=== PATIENT | female | born 1990 | race Hispanic/Latino ===

== ENCOUNTER 2021-03-27 21:47 | Emergency (ER) | payer MEDICAID ==
[~2021-03-27] VITALS: Ht 139.7 cm; Wt 59.0 kg
[2021-03-27] MEDS ORDERED: ACETAMINOPHEN WITH CODEINE 1 TAB TAB PO ONE (23:30)
[2021-03-27] MEDS ORDERED: IBUPROFEN 800 MG TAB PO ONE (23:30)
[2021-03-27] MEDS ORDERED: 0.9%NACL 1000ML 1,000 ML IV ONE (23:30)
[2021-03-27 23:32] LABS: BASOPHILS % (AUTO) 0.3 % (0.0-5.0); EOSINOPHILS % (AUTO) 0.5 % (0.0-8.0); HEMATOCRIT 34.4 % (36-48); LYMPHOCYTES % (AUTO) 4.4 % (21.0-51.0); MEAN CORPUSCULAR HEMOGLOBIN 26.7 pg (27.0-33.0); MEAN CORPUSCULAR HGB CONC 31.1 g/dL (32.0-36.0); MEAN CORPUSCULAR VOLUME 85.8 fL (79-99); MONOCYTES % (AUTO) 9.8 % (3.0-13.0); NEUTROPHILS % (AUTO) 84.7 % (40.0-77.0); PLATELET COUNT (AUTO) 285 K/uL (130-400); RED BLOOD CELL COUNT(AUTO) 4.01 MIL/uL (4.00-5.50); RED CELL DISTRIBUTION WIDTH 13.9 % (11.0-15.5); WHITE BLOOD COUNT (AUTO) 6.6 K/uL (4.8-10.8)
[2021-03-27 23:43] LABS: CREATININE 0.7 mg/dL (0.5-1.5); POTASSIUM 3.6 mmol/L (3.5-5.1)
[2021-03-27 23:48] LABS: ALBUMIN 4.3 g/dL (3.5-5.0); BILIRUBIN,TOTAL 0.2 mg/dL (0.2-1.0); TOTAL PROTEIN, SERUM 8.4 g/dL (6.0-8.3)
[2021-03-28] MEDS ORDERED: AZITHROMYCIN 250 MG TABLET PO ONE (02:00)
[2021-03-28] MEDS ORDERED: MORPHINE 2 MG SYG IVP ONE (02:00)
[2021-03-28] MEDS ORDERED: OSELTAMIVIR PHOSPHATE 75 MG CAP PO SCH (02:00)
[2021-03-28] MEDS ORDERED: BENZ-39 PO (02:02)
[2021-03-28] MEDS ORDERED: IVER3TAB PO (02:02)
[2021-03-28] MEDS ORDERED: AZIT250T PO (02:02)
[2021-03-28] MEDS ORDERED: OSEL75 PO (02:02)
[2021-03-28 03:24] VITALS: BP 138/82
== END 2021-03-28 03:36 | disposition home or self-care (01) ==
LOC: EDH 21:47
DX: U07.1 COVID-19 (principal); J11.1 Influenza due to unidentified influenza virus with other respiratory manifestations; R03.0 Elevated blood-pressure reading, without diagnosis of hypertension; Z79.1 Long term (current) use of non-steroidal anti-inflammatories (NSAID)
CPT/HCPCS: 36415; 71045; 80053; 83605; 85025; 87040 ×2; 87635; 87804 ×2; 87880; 96361; 96374; 99284; C9803; J7030

== ENCOUNTER 2024-12-19 10:51 | Emergency (ER) | payer MEDICAID ==
[~2024-12-19] VITALS: Ht 139.7 cm; Wt 59.0 kg
[~2024-12-19 10:51] MED LIST: AZIT250T PO; BENZ-39 PO; IVER3TAB PO; OSEL75 PO
--- NOTE | 2024-12-19 11:12 | EKG ---
[facility] Test Date: 2024-12-19 Test Time: 11:05:51 Pat Name: EVENS GLORIA Department: ED Room: Gender: F [employer]: [id number] : 1990 Requested By: BRIDGET WELCH Order Number: [id number] Reading MD: Axel Armstrong Measurements Intervals [place] Rate: 94 P: 41 KS: 170 QRS: 42 QRSD: 83 T: 28 QT: 393 QTc: 491 Interpretive Statements Sinus rhythm No previous ECG available for comparison Electronically Signed On 12-21-2024 12:48:40 CDT by Axel Armstrong Please click the below link to view image of tracing.
[2024-12-19 11:17] LABS: IMMATURE GRANULOCYTE ABSOLUTE 0.04 K/uL (0-1); NUCLEATED RED BLOOD CELLS 0.0 % (0.0-0.19); PLATELET COUNT (AUTO) 504 K/uL (130-400); RED BLOOD CELL COUNT(AUTO) 4.05 MIL/uL (4.00-5.50); RED CELL DISTRIBUTION WIDTH 14.2 % (11.0-15.5); WHITE BLOOD COUNT (AUTO) 8.3 K/uL (4.8-10.8)
[2024-12-19 11:22] LABS: CREATININE 0.7 mg/dL (0.5-1.0); GLOMERULAR FILTR. RATE CALC 116.0 mL/min (>90); GLUCOSE,RANDOM 140.0 mg/dL (70-105); SODIUM SERUM 133.0 mmol/L (136-145); UREA NITROGEN, BLOOD 8.0 mg/dL (7-18)
--- NOTE | 2024-12-19 13:22 | HMCIMG ---
EXAM: CT Head Without IV contrast. CLINICAL HISTORY: hypertensive urgency TECHNIQUE: Axial computed tomography images of the head/brain without intravenous contrast. COMPARISON: None provided. FINDINGS: BRAIN: Effacement of sulcal spaces in the bilateral fqmfnqv-spxplsqq-zkziorut region. No evidence of acute hemorrhage. No mass lesion. No CT evidence for acute territorial infarct. No midline shift or extra-axial collections. VENTRICLES: No hydrocephalus. ORBITS: The orbits are unremarkable. SINUSES AND MASTOIDS: The paranasal sinuses and mastoid air cells are clear. BONES: No fracture. SOFT TISSUES: Unremarkable. IMPRESSION: 1. Effacement of sulcal spaces in the bilateral myczvkb-kfgvhraw-adjxrdax region, concerning for cerebral edema. 2. No acute intracranial hemorrhage, mass, or territorial infarct. /Johnson
--- NOTE | 2024-12-19 14:46 | ERN ---
General Chief Complaint: Headache Stated Complaint: HEADACHE Time Seen by MD: 10:53 Time Seen by Midlevel: 10:53 Source: patient History of Present Illness Initial Comments Patient in the emergency your EMS for evaluation of a headache with associated nausea. On arrival the patient was consistent with a systolic blood pressure 210. Patient denies other symptoms. She does report taking blood pressure medication month because she was unable refill. Allergies: Coded Allergies: No Known Drug Allergies (Unverified Allergy, Unknown, 03/27/21) Home Meds Active Scripts Lisinopril (Lisinopril) 20 Mg Tablet, 1 TAB PO DAILY for 30 Days, #30 TAB 0 Refills Prov:BRIDGET WELCH 12/19/24 Benzonatate (Tessalon Perles) 100 Mg Cap, 100 MG PO TID PRN for caugh, #15 CAP 0 Refills Prov:CHALINO FRIEDMAN MD 03/28/21 Oseltamivir Phosphate (Tamiflu) 75 Mg Cap, 75 MG PO BID, #10 CAP 0 Refills Prov:CHALINO FRIEDMAN MD 03/28/21 Azithromycin (Zithromax) 250 Mg Tablet, 250 MG PO DAILY, #4 TAB 0 Refills Prov:CHALINO FRIEDMAN MD 03/28/21 Ivermectin (Ivermectin) 3 Mg Tablet, 12 MG PO DAILY for 5 Days, #20 TAB 0 Refills Prov:CHALINO FRIEDMAN MD 03/28/21 Past Medical History Past Medical History: Hypertension Past Surgical History: Female( History) LMP: Nov 30, 2024 ROS Dictation CONSTITUTIONAL: Negative except for HPI HEAD/FACE: Negative except for HPI EENT: Negative except for HPI RESPIRATORY: Negative except for HPI GASTROINTESTINAL/ABDOMINAL: Negative except for HPI GENITOURINARY: Negative except for HPI MUSCULOSKELETAL: Negative except for HPI INTEGUMENTARY: Negative except for HPI NEUROLOGICAL/PSYCH: Negative except for HPI HEMATOLOGIC/LYMPHATIC: Negative except for HPI All Systems Negative, Except as noted above. 13 point review of systems assessed and all negative except for above. Physical Exam Physical Exam Dictation Vital Signs reviewed General Appearance: Alert, oriented x 3, no acute distress, well developed, nourished. Head and Face: non-traumatic. Eyes: PERRL, pink conjunctivas, eyelid no trauma, anterior chamber with arcus senilis. Ears: Pinnas intact and no signs of trauma or erythema ear canals clear and no discharge TM no erythema Nose: No discharge, no bleeding. Oropharynx: Mouth normal, tongue pink, pharynx clear,no erythema, tonsils no exudates, no abscesses noted, mucous membrane moist Neck: Supple, non-tender, no thyromegaly, no masses, no JVD, no bruits Breast:Deferred Chest:No tenderness, no crepitus, no paradoxical movement, no retractions Lungs:Clear, well-ventilated, symmetric, no rales, no wheezing, no rhonchi, no stridor, good breath sounds bilaterally Heart: Regular rate, regular rhythm, no murmur, no gallops Vascular: no peripheral edema, Abdomen: Soft, positive bowel sounds, nondistended, no guarding, nontender, no rebound, no masses no hepatomegaly, no splenomegaly, no Cox's sign, no hernias. Rectal: Deferred Genital: Deferred Neurological: Normal speech, motor function intact, sensory function intact Musculoskeletal: Neck nontender, full range of motion, back nontender, full range of motion, Extremities: nontender, full range of motion Skin: Color pink, dry, no turgor, no rash, no lacerations, no abrasions, no contusions. Lymphatic: Deferred Results Laboratory and Microbiology Lab and Micro Result Laboratory Tests Test 12/19/24 11:10 White Blood Count 8.3 K/uL (4.8-10.8) Red Blood Count 4.05 MIL/uL (4.00-5.50) Hemoglobin 9.9 g/dL (12.0-16.0) L Hematocrit 31.2 % (36-48) L Mean Corpuscular Volume 77.0 fL (79-99) L Mean Corpuscular Hemoglobin 24.4 pg (27.0-33.0) L Mean Corpuscular Hemoglobin Concent 31.7 g/dL (32.0-36.0) L Red Cell Distribution Width 14.2 % (11.0-15.5) Platelet Count 504 K/uL (130-400) H Mean Platelet Volume 10.7 fL (7.5-10.5) H Immature Granulocyte % (Auto) 0.5 % (0-1) Neutrophils (%) (Auto) 82.1 % (40.0-77.0) H Lymphocytes (%) (Auto) 12.9 % (21.0-51.0) L Monocytes (%) (Auto) 3.8 % (3.0-13.0) Eosinophils (%) (Auto) 0.1 % (0.0-8.0) Basophils (%) (Auto) 0.6 % (0.0-5.0) Neutrophils # (Auto) 6.8 K/uL (1.8-7.7) Lymphocytes # (Auto) 1.1 K/uL (1.0-4.8) Monocytes # (Auto) 0.3 K/uL (0.1-1.0) Eosinophils # (Auto) 0.01 K/uL (0.00-0.70) Basophils # (Auto) 0.05 K/uL (0.00-0.20) Absolute Immature Granulocyte (auto 0.04 K/uL (0-1) Nucleated Red Blood Cells 0.0 % (0.0-0.19) Red Blood Cell Morphology See comments Sodium Level 133 mmol/L (136-145) L Potassium Level 3.4 mmol/L (3.5-5.1) L Chloride Level 97 mmol/L (101-111) L Carbon Dioxide Level 26 mmol/L (21-32) Blood Urea Nitrogen 8 mg/dL (7-18) Creatinine 0.7 mg/dL (0.5-1.0) Glomerular Filtration Rate Calc 116 mL/min (>90) Random Glucose 140 mg/dL (70-105) H Total Calcium 8.8 mg/dL (8.5-10.1) Troponin I High Sensitivity 7 ng/L (4-50) Serum Test, Qualitative NEGATIVE (NEGATIVE) Labs Reviewed?: Yes MDM MDM: 34-year-old with a past medical history of uncontrolled hypertension presenting with headache, nausea, and elevated blood pressure. On arrival patient is in no distress. Neurological examination unremarkable. systolic pressure of 210. Cardiac workup initiated. A CT scan performed which is concerning for Igor edema. Neurosurgery was contacted. Neurosurgery reviewed the CT scan and not believe patient needs emergent intervention at time. He recommends controlling blood pressure and have him follow up outpatient. Cardiac enzymes are normal. Her EKGs normal. Patient was 10 mg of labetalol in the emergency department and was discharged home with strict return precautions Differential diagnosis: Hypertensive urgency, hypertensive emergency, uncontrolled hypertension, medication noncompliance There are no social concerns with this patient. Prescription drug management Prescriptions will include: Lisinopril Medical management and examination interpretation discussions were had by me with other qualified healthcare professionals as indicated for the patient's care. ED Course Orders Procedure Category Date Status Time 12 Lead Ekg Tracing- EKG 12/19/24 Complete Technical 11:00 Cbc With Differential LAB 12/19/24 Complete 11:00 Basic Metabolic Panel LAB 12/19/24 Complete 11:00 Troponin I High LAB 12/19/24 Complete Sensitivity 11:00 Ct Head/Brain W/O CT 12/19/24 Resulted Contrast 11:00 Testing, LAB 12/19/24 Complete Serum Hcg 11:00 Labetalol 20mg Syg PHA 12/19/24 Logged (Trandate 20mg Syg) 16:00 Current Medications Medications (Trade) Dose Ordered Sig/Isaac Route PRN Reason Start Time Stop Time Status Last Admin Dose Admin Labetalol HCl (TRANdate 20MG SYG) 10 mg ONCE ONCE IV 12/19/24 16:00 12/19/24 16:01 UNV Vital Signs Date Time Temp Pulse Resp B/P (MAP) Pulse Ox O2 Delivery O2 Flow Rate FiO2 12/19/24 15:22 97.5 88 18 149/88 98 Room Air* 0 12/19/24 14:03 90 18 157/91 97 Room Air* 0 12/19/24 10:53 97.5 96 18 183/97 98 Room Air 0 DX & DISP Disposition: Discharge Departure Impression: Primary Impression: Hypertensive urgency Additional Impression: Noncompliance with medications Condition: Stable Scripts Lisinopril (Lisinopril) 20 Mg Tablet 1 TAB PO DAILY for 30 Days, #30 TAB 0 Refills Prov: BRIDGET WELCH 12/19/24 Additional Instructions: Your blood today is unremarkable. Your blood pressure is improving. I have given you a prescription for lisinopril 20 mg daily. Take your medications prescribed. You will need follow up primary care doctor for further evaluation. Your CT scan of the head today showed findings concerning for possible swelling in your brain (cerebral edema). We discussed these findings with neurosurgeon Dr. Naranjo. He reviewed your CT scan and believes your CT scan is normal and there was no need for emergent intervention at this time. He recommends controlling your blood pressure at home and following up outpatient if needed. Referrals: SELF,REFERRAL (PCP) LISHA LOPEZ MD Time of Disposition: 14:46 I have reviewed the case, and I agree with, Diagnosis and Plan I performed the substantive portion of the visit. I have reviewed and personally made and approve the management plan that is documented in the note by myself or the IRINA. I acknowledge for responsibility for the patient's management plan. BRIDGET WELCH Dec 19, 2024 14:46
[2024-12-19 15:22] VITALS: BP 149/88; PULSE 88; RESP 18; TEMP 97.5; O2SAT 98
[2024-12-19] MEDS ORDERED: LISI20TA24 PO (15:28)
== END 2024-12-19 16:14 | disposition home or self-care (01) ==
LOC: EDH 10:51
DX: I16.0 Hypertensive urgency (principal); I10 Essential (primary) hypertension; Z79.899 Other long term (current) drug therapy; Z91.148 Patient's other noncompliance with medication regimen for other reason
CPT/HCPCS: 36415; 70450; 80048; 84484; 84703; 85025; 93005; 99284